=== PATIENT | female | born 1980 | race Caucasian/White ===

== ENCOUNTER 2017-03-02 14:57 | Emergency (ER) | payer MEDICAID, OTHER ==
[~2017-03-02] VITALS: Ht 165.1 cm; Wt 65.9 kg
[2017-03-02 14:57] VITALS: BP 137/74
[2017-03-02] MEDS ORDERED: IBUP80TA (15:15)
[2017-03-02] MEDS ORDERED: KEFL500C17 PO (16:17)
[2017-03-02] MEDS ORDERED: IBUP-1022 PO (16:17)
== END 2017-03-02 16:37 | disposition home or self-care (01) ==
LOC: M ED 14:57
DX: L08.9 Local infection of the skin and subcutaneous tissue, unspecified (principal); Z72.0 Tobacco use

== ENCOUNTER → 2018-05-29 | Outpatient (REF) | payer OTHER ==
[~2018-05-29] MED LIST: IBUP-1022 PO; IBUP80TA; KEFL500C17 PO
[2018-05-29 18:38] LABS: APPEARANCE, URINE HAZY (CLEAR); BACTERIA, URINE AUTO 1+ (NEGATIVE); BILIRUBIN, URINE AUTO NEGATIVE (NEGATIVE); BLOOD, URINE BLOOD NEGATIVE (NEGATIVE); COLOR, URINE YELLOW (YELLOW); GLUCOSE, URINE (UA) AUTO NEGATIVE (NEGATIVE); KETONE, URINE AUTO NEGATIVE (NEGATIVE); LEUKOCYTE ESTERASE, URINE AUTO 3+ (NEGATIVE); NITRITE, URINE AUTO POSITIVE (NEGATIVE); PROTEIN, URINE AUTO NEGATIVE (NEGATIVE); RBC, URINE AUTO 1 /HPF (0-3); SPECIFIC GRAVITY URINE AUTO 1.005 (1.002-1.035); SQUAMOUS EPITHELIAL CELL UR AU 5 /HPF (0-6); UROBILINOGEN, URINE AUTO 0.2 mg/dL (0.0-2.0); WBC, URINE AUTO 45 /HPF (0-3)
== END ==
LOC: M SMT 16:53
PROVIDERS: ATTEND Nurse Practitioner Family
DX: N39.0 Urinary tract infection, site not specified (principal)

== ENCOUNTER → 2021-09-11 | Outpatient (REF) | LOC: M PLAIMG 11:47 | PROVIDERS: ATTEND Internal Medicine | DX: M25.561 Pain in right knee (principal) ==